=== PATIENT | female | born 1980 | race Caucasian/White ===

== ENCOUNTER 2021-09-11 10:32 | Outpatient (CLI) | payer OTHER, SELFPAY ==
[2021-09-11 11:35] LABS: SARS-CoV-2 RNA PCR Negative (Negative)
== END 2021-09-11 10:33 | disposition home or self-care (01) ==
LOC: CHSLAB 10:36
PROVIDERS: PCP Physician Assistant; Visit Provider Physician Assistant
DX: B34.9 Viral infection, unspecified (principal); Z20.822 Contact with and (suspected) exposure to COVID-19
CPT/HCPCS: C9803; U0003; U0005

== ENCOUNTER 2022-04-06 08:20 | Outpatient (CLI) | payer OTHER, SELFPAY ==
[2022-04-06 09:51] LABS: SARS-CoV-2 RNA PCR Positive (Negative)
== END 2022-04-06 08:21 | disposition home or self-care (01) ==
LOC: CHSLAB 08:23
PROVIDERS: PCP Physician Assistant; Visit Provider Physician Assistant
DX: U07.1 COVID-19 (principal)
CPT/HCPCS: C9803; U0003; U0005

== ENCOUNTER 2024-11-08 19:05 | Emergency (ER) | payer OTHER, SELFPAY ==
--- NOTE | ~2024-11-08 | XR_ITS ---
EXAM: XR shoulder RT min 2V DATE: 11/08/2024 20:33 HISTORY: injury . COMPARISON: None available. FINDINGS: Normal mineralization. No fracture or dislocation. No lytic or blastic lesion. Mild degene rative change at the AC joint. No erosion or periosteal change. Soft tissues within normal limits. IMPRESSION: No acute osseous finding in the right shoulder. Reviewed, dictated and finalized at location K. R EXPERT
--- NOTE | ~2024-11-08 | XR_ITS ---
EXAM: XR thoracic spine 3V DATE: 11/08/2024 20:33 HISTORY: right shoulder blade injury . COMPARISON: None available. FINDINGS: Vertebral body alignment intact. Vertebral body heights preserved. No disc space narrowing . The cervicothoracic junction is partially obscured in the lateral view. No traumatic malalignment o r fracture. Visualized lung parenchyma is clear. IMPRESSION: No acute fracture or traumatic malalignment detected in the thoracic spine. Reviewed, dictated and finalized at location K. CTOR OF BRAND MARKETING IMPRESSION: No acute fracture or traumatic malalignment detected in the thoraci c spine.
[2024-11-08 19:10] VITALS: BP 204/104; PULSE 99; RESP 18; TEMP 37.1; O2SAT 100
--- OUTSIDE RECORDS SUMMARY | 2024-11-08 19:12 | XMS_ITS | Referral Summary ---
Author Organization [facility] Address [address] [place] [address] Care Team Providers Care Yard Truck Driver Name Role Phone Winston Powell Primary Care Provider [phone] Allergies No known active allergies Medications ibuprofen (ADVIL,MOTRIN) suspension 100 mg/5 mL Take 400 mg by mouth every 4 (four) hours as needed for pain Active methylPREDNISol one (MEDROL, ALLA,) 4 mg DosepackIndicat ions:Anti-infla mmatory Take 1 tablet (4 mg total) by mouth as directed on package 1 packet 07/29/2019 Active Active Problems No known active problems Social History Tobacco Use Types Packs/Day Years Used Date Smoking Tobacco: Former Smokeless Tobacco: Never Comments Unknown Sex and Gender Information Value Date Recorded Sex Assigned at Not on file Legal Sex Female 3:14 AM SOFTWARE ANALYST Gender Identity Not on file Sexual Orientation Not on file Last Filed Vital Signs Vital Sign Reading Time Taken Comments Blood Pressure 152/97 07/29/2019 8:34 AM SOFTWARE ANALYST Pulse 103 07/29/2019 8:34 AM SOFTWARE ANALYST Temperature - - Respiratory Rate - - Oxygen Saturation - - Inhaled Oxygen Concentration - - Weight 95.4 kg (210 lb 6.4 oz) 07/29/2019 8:34 A M SOFTWARE ANALYST Height 162.6 cm (5' 4 ) 07/29/2019 8:34 AM SOFTWARE ANALYST Body Mass Index 36.12 07/29/2019 8:34 AM SOFTWARE ANALYST Plan of Treatment Not on file Insurance [employer] OPEN ACCESS Care Teams Yard Truck Driver Relationship Specialty Start Date End Date Winston Powell PA [address] [place] [address] PCP - General 01/17/15
--- OUTSIDE RECORDS SUMMARY | 2024-11-08 19:12 | XMS_ITS | Data Portability ---
[facility] Address [address] [place] [address] Assessment No assessment recorded. Plan of Treatment Reminders Order Date Submit Date Provider Last Modified By Organization Details Last Modified Time Details Appointments None record ed. Lab None record ed. Referral None record ed. Procedures None record ed. Surgeries None record ed. Imaging None record ed. Medication Orders None record ed. Patient TargetsNo targets recorded. Patient InstructionsNo instructions recorded. Reason for Referral None Reported. Results Created Date Observation Date Name Description Value Unit Range Abnormal Flag Note LastModifiedBy Organization Detail LastModifiedTime Result Notes None recorded. Problems Name Problem SNOMED Code Status Onset Date Resolution Date Notes Provider Name and Address Organization Details Recorded Time Carpal tunnel syndrome 72189010 Active Winston Powell PA-C Attn: Accounting ,[address] [place], [address] , [facility] 5 10:34:45 Problem Notes None recorded. Procedures Surgical History Date Name Laterality Status Provider Name and Address Organization Details Recorded Time Tubal Ligation completed Melinda French MA [facility] 11/16/2014 17:39:04 Imaging Results None recorded. Procedure Notes None recorded. Medical Equipment None Reported. Allergies No known drug allergies Medications Name Sig Start Date Stop Date Status Note LastModified by Organization Details LastModified Time Keflex 500 mg capsule Take 1 capsule every 8 hours by oral route as directed for 10 days. 10/15 completed Not Available Not Available Not Available Medrol (Sim) 4 mg tablets in a dose pack Take 1 dose pk by oral route as directed. 2023 active Not Available Not Available Not Avai lable ciprofloxac in 500 mg tablet TAKE 1 TABLET BY MOUTH EVERY 12 HOURS FOR 10 DAYS 10/15 completed Not Available Not Available Not Available acyclovir 800 mg tablet Take 1 tablet 5 times a day by oral route for 5 days. 2015 active Not Available Not Available Not Avai lable Depo-Medrol 80 mg/mL suspension for injection Take 1 mL by injection route. 10/15 completed Not Available Not Available Not Available Guaiatussin AC 10 mg-100 mg/5 mL oral liquid Take 10 mL every 4 hours by oral route as needed. 10/15 completed Not Available Not Available Not Available hydrocortis one 2.5 % topical cream APPLY A THIN LAYER TO THE AFFECTED AREA(S) BY TOPICAL ROUTE 2 TIMES PER DAY 10/15 completed Not Available Not Available Not Available Levaquin 500 mg tablet Take 1 tablet every 24 hours by oral route for 7 days. 10/15 completed Not Available Not Available Not Available naproxen 500 mg tablet Take 1 tablet twice a day by oral route. 2023 active Not Available Not Available Not Avai lable Bactrim DS 800 mg-160 mg tablet Take 1 tablet every 12 hours by oral route for 10 days. 2023 active Not Available Not Available Not Avai lable Dexilant 60 mg capsule, delayed release Take 1 capsule every day by oral route for 90 days. 2023 active Not Available Not Available Not Avai lable Vitals None Recorded Social History None recorded. Functional Status None recorded. Mental Status None recorded. Family History Relationship Description Onset Age of this Age Resolved Age Notes LastModified by Organization Details LastModified Time Father Heart disease [email or web address] Not available 2014 17:36:09 Mother Heart disease jweichert Not available 2014 17:36:09 Medical History No medical history recorded. Gynecological HistoryNo gynecological history recorded. Obstetrics History GPAL:G 0 P 0 0 0 0 Immunizations Vaccine Type Date Status Note Provider Nam e and Address Organization Details Recorded Time COVID-19, mRNA, LNP-S, PF, 30 mcg/0.3 mL dose 07/12/2021 completed Sveta Ramirez MA null, [place] - [facility] 07/12/2021 17:04:23 COVID-19, mRNA, LNP-S, PF, 30 mcg/0.3 mL dose 08/02/2021 completed Sveta Ramirez MA [facility], [place] - [facility] 08/02/2021 16:35:42 Past Encounters Encounter ID Performer Location Encounter Start Date Encounter Closed Date Diagnosis/Indication Diagnosis SNOMED-CT Code Diagnosis ICD10 Code Diagnosis Note [id number] Sveta Ramirez DENIS [facility] [address] [place] [address] 07/12/2021 17:00:19 07/12/2021 17:15:02 Administration of SARS-CoV-2 antigen vaccine 511840743 Z23 [id number] Sveta Ramirez MA [facility] [address] [place] [address] 08/02/2021 15:47:24 08/02/2021 16:54:27 Administration of SARS-CoV-2 mRNA vaccine 8056010439 Z23 Health Concerns Section Related Observation LastModified by Organization Detai ls LastModified Time None Recorded Concern Status LastModified by Organization Details LastModified Time None Recorded Advance Directives Directive None Recorded Payers Encounter Date Sequence Insurance Name Policy Number Policy Vicente Covered Member ID Vicente Member ID Guarantor Name 07/12/2021 1 [employer] - OPEN ACCESS Luann Spraggs [id number] Luann Spraggs 08/02/2021 1 [employer]EF[employer] - OPEN ACCESS Luann Spraggs [id number] Luann Spraggs OBGyn Episode No OBEpisode recorded.
--- OUTSIDE RECORDS SUMMARY | 2024-11-08 19:12 | XMS_ITS | Clinical Summary ---
Author Organization [facility] Address [address] [place] [address] Care Team Providers Care Senior Geotechnical Engineer Name Role Phone Winston Powell Primary Care Provider [phone] Allergies No known active allergies Medications ibuprofen (ADVIL,MOTRIN) suspension 100 mg/5 mL Take 400 mg by mouth every 4 (four) hours as needed for pain Active methylPREDNISol one (MEDROL, ALLA,) 4 mg DosepackIndicat ions:Anti-infla mmatory Take 1 tablet (4 mg total) by mouth as directed on package 1 packet 07/29/2019 Active Active Problems No known active problems Surgical History Surgery Date Site/Laterality Comments OTHER SURGICAL HISTORY left hand CTR HAND SURGERY Medical History Medical History Date Comments Hx Other Medical Tubal Apr 25 Family History Medical History Relation Name Comments Diabetes Other 1 Family history of Diabetes mellitus; Hypertension Other 2 Family history of Hypertension; Stroke Other 3 Family history of Stroke; Relation Name Status Comments Other 1 Other 2 Other 3 Social History Tobacco Use Types Packs/Day Years Used Date Smoking Tobacco: Former Smokeless Tobacco: Never Comments Unknown Sex and Gender Information Value Date Recorded Sex Assigned at Not on file Legal Sex Female 3:14 AM AVIATION METALSMITH Gender Identity Not on file Sexual Orientation Not on file Obstetrics History Last Filed Vital Signs Vital Sign Reading Time Taken Comments Blood Pressure 152/97 07/29/2019 8:34 AM AVIATION METALSMITH Pulse 103 07/29/2019 8:34 AM AVIATION METALSMITH Temperature - - Respiratory Rate - - Oxygen Saturation - - Inhaled Oxygen Concentration - - Weight 95.4 kg (210 lb 6.4 oz) 07/29/2019 8:34 A M AVIATION METALSMITH Height 162.6 cm (5' 4 ) 07/29/2019 8:34 AM AVIATION METALSMITH Body Mass Index 36.12 07/29/2019 8:34 AM AVIATION METALSMITH Plan of Treatment Not on file Insurance [employer] OPEN ACCESS Care Teams Senior Geotechnical Engineer Relationship Specialty Start Date End Date Winston Powell PA [address] [place] [address] PCP - General 01/17/15
--- OUTSIDE RECORDS SUMMARY | 2024-11-08 19:51 | XMS_ITS | Clinical Summary ---
Author Organization [facility] Address [address] [place] [address] Care Team Providers Care Sanforizing Machine Operator Name Role Phone Winston Powell Primary Care Provider [phone] Allergies No known active allergies Medications ibuprofen [...] on file Legal Sex Female 3:14 AM BUILDING CARPENTER HELPER Gender Identity Not on file Sexual Orientation Not on file Obstetrics History Last Filed Vital Signs Vital Sign Reading Time Taken Comments Blood Pressure 152/97 07/29/2019 8:34 AM BUILDING CARPENTER HELPER Pulse 103 07/29/2019 8:34 AM BUILDING CARPENTER HELPER Temperature - - Respiratory Rate - - Oxygen Saturation - - Inhaled Oxygen Concentration - - Weight 95.4 kg (210 lb 6.4 oz) 07/29/2019 8:34 A M BUILDING CARPENTER HELPER Height 162.6 cm (5' 4 ) 07/29/2019 8:34 AM BUILDING CARPENTER HELPER Body Mass Index 36.12 07/29/2019 8:34 AM BUILDING CARPENTER HELPER Plan of Treatment Not on file Insurance [employer] OPEN ACCESS Care Teams Sanforizing Machine Operator Relationship Specialty Start Date End Date Winston Powell PA [address] [place] [address] PCP - General 01/17/15
--- OUTSIDE RECORDS SUMMARY | 2024-11-08 19:51 | XMS_ITS | Referral Summary ---
Author Organization [facility] Address [address] [place] [address] Care Team Providers Care Senior Bioinformatics Specialist Name Role Phone Winston Powell Primary Care Provider [phone] Allergies No known active allergies Medications ibuprofen [...] on file Legal Sex Female 3:14 AM CONSTRUCTION IRONWORKER HELPER Gender Identity Not on file Sexual Orientation Not on file Last Filed Vital Signs Vital Sign Reading Time Taken Comments Blood Pressure 152/97 07/29/2019 8:34 AM CONSTRUCTION IRONWORKER HELPER Pulse 103 07/29/2019 8:34 AM CONSTRUCTION IRONWORKER HELPER Temperature - - Respiratory Rate - - Oxygen Saturation - - Inhaled Oxygen Concentration - - Weight 95.4 kg (210 lb 6.4 oz) 07/29/2019 8:34 A M CONSTRUCTION IRONWORKER HELPER Height 162.6 cm (5' 4 ) 07/29/2019 8:34 AM CONSTRUCTION IRONWORKER HELPER Body Mass Index 36.12 07/29/2019 8:34 AM CONSTRUCTION IRONWORKER HELPER Plan of Treatment Not on file Insurance [employer] OPEN ACCESS Care Teams Senior Bioinformatics Specialist Relationship Specialty Start Date End Date Winston Powell PA [address] [place] [address] PCP - General 01/17/15
--- NOTE | 2024-11-08 20:16 | ED.FALL ---
HPI - Fall General Chief Complaint: Fall Stated Complaint: fall Time Seen by Provider: 11/08/24 19:46 Source: patient Mode of arrival: ambulatory Limitations: no limitations History of Present Illness HPI Narrative: Patient is a 44-year-old female with significant past medical history that presents today after a fall. Patient slipped on the ice and fell and fell on on her right side her back. She has most pain on her right shoulder blade dorsum midline. It is very painful just palpation. She also has some pain at her right elbow has some aches and pains at other places she is from the fall. Nothing serious. complaint: fall Onset (ago): hour(s) Fall from: standing Fall witnessed: yes, by family Place fall occurred: street Loss of consciousness: none Prolonged down time: no Symptoms prior to fall: none Context: tripped/slipped Location of injury: other ( Right shoulder blade) Location of injury - extremities: Right: shoulder Severity: moderate Severity scale (1-10): 6 Quality: sharp and stabbing Associated symptoms (after fall): weakness Related Data Home Medications ?Medication ?Instructions ?Recorded ?Confirmed ?Last Taken ?Type No Home Medications 11/08/24 11/08/24 Unknown History Allergies Allergy/AdvReac Type Severity Reaction Status Date / Time acetaminophen (From Vicodin) Allergy Palpitation Verified 11/08/24 19:26 s hydrocodone (From Vicodin) Allergy Palpitation Verified 11/08/24 19:26 s Review of Systems Review of Systems: All systems reviewed & are unremarkable except as noted in HPI and below Constitutional: Constitutional: Reports as per HPI Eyes: Eyes: Reports no additional eye complaints ENT: Reports system reviewed and no additional complaints, except as documented Cardiovascular: Cardiovascular: Reports no additional cardiovascular complaints Respiratory: Respiratory: Reports no additional respiratory complaints Gastrointestinal: Gastrointestinal: Reports no additional gastrointestinal complaints Genitourinary: Genitourinary: Reports no additional female genitourinary complaints Musculoskeletal: Musculoskeletal: Reports as per HPI, Reports back pain, Reports myalgias and Reports other ( right shoulder blade pain) Integumentary/Breasts: Skin/Breast: Reports system reviewed and no additional complaints, except as docu Neurologic: Reports system reviewed and no additional complaints, except as documented Psychiatric: Psychiatric: Reports no additional psychiatric complaints Endocrine: Endocrine: Reports no additional endocrine complaints Hematologic/Lymphatic: Hematologic/Lymphatic: Reports no additional hematologic/lymphatic complaints Allergic/Immunologic: Allergic/Immunologic: Reports no additional allergic/immunologic complaints Exam Const: General: cooperative, healthy appearing and comfortable HENMT: Head: normal to inspection, No palpable skull fracture present and normocephalic Ears: hearing grossly normal bilaterally, external ears normal, TM's normal bilaterally, mastoids normal and no periauricular adenopathy Face/Nose/Sinus: Normal external nose present and Normal nares present Face and sinus: normal facial exam and sinuses nontender Teeth and gingiva: dentition normal Throat: posterior oropharynx normal Eyes: General: appearance normal, both eyes and all related structures Neck: Neck: normal visual inspection Chest: Chest palpation & inspection: normal inspection of the chest Resp: Effort & Inspection: normal respiratory effort Auscultation: clear to auscultation bilaterally Percussion: percussion normal Cardio: Jugular venous distension: no JVD Palpation: normal PMI Rate: regular rate Rhythm: regular rhythm Heart sounds: S1 normal heart sound present and S2 normal heart sound present GI: Inspection: normal to inspection Back/Spine/Pelvis: Back: no CVA tenderness Cervical Spine: cervical ROM normal Skin: General skin exam: normal color Lesions: no lesions Extrem: General: normal to inspection and full ROM Right lower extremity: normal to inspection Left lower extremity: normal to inspection Psych: Appearance: grossly normal and well kempt Course Vital Signs Vital signs: Vital Signs Temperature 98.7 F 11/08/24 19:10 Pulse Rate 99 11/08/24 19:10 Respiratory Rate 18 11/08/24 19:10 Blood Pressure 204/104 H 11/08/24 19:10 Pulse Oximetry 100 11/08/24 19:10 Oxygen Delivery Room Air 11/08/24 19:10 Temperature 98.7 F 11/08/24 19:10 Pulse Rate 99 11/08/24 19:10 Respiratory Rate 18 11/08/24 19:10 Blood Pressure 204/104 H 11/08/24 19:10 Pulse Oximetry 100 11/08/24 19:10 Oxygen Delivery Room Air 11/08/24 19:10 MDM - Fall MDM Narrative Medical decision making narrative: patient might possibly have a small fracture her right shoulder blade is in the midsection. Is very tender with her. Do an x-ray of the thoracic spine that will show the shoulder blades and put a note in for the radiologist to look at the right shoulder blade. Also do a x-ray of the right shoulder is Itself. X-rays came back negative for a fracture dislocations. She most likely is at the deep bone bruise and explained her to put heat on and take ibuprofen for the pain swelling. Differential Diagnosis Differential diagnosis: Likely other ( Bone bruise, right shoulder injury) Medical Records Attestation: I reviewed the patient's medical records. Lab Data Attestation: I reviewed the patient's lab results. Imaging Data Attestation: I personally reviewed and interpreted this imaging study as follows: Discharge Plan Discharge Clinical Impression: Crushing injury of right shoulder, Fall Patient Disposition: Home, Self-Care Condition: Stable Instructions: Shoulder Sprain (ED) Patient Language: Sierra Leonean Prescriptions: No Action No Home Medications Follow-up/Referrals: Andre,HUGO Hsu [Primary Care Provider] - Time of Disposition: 21:15
[2024-11-08] MEDS: KETOROLAC (*BKC) 60 MG/2 ML VIAL IM (20:30)
[2024-11-08 21:11] VITALS: BP 206/114; PULSE 89; RESP 18; TEMP 36.9; O2SAT 99
[2024-11-08] MEDS: cloNIDine HCL 0.2 MG TABLET PO (21:16)
--- NOTE | 2024-11-08 21:19 | PC.NURSE ---
patient medicated for her bp at this time, tearful telling RN that she is ready to go home and that she has white coat syndrome. RN explained increased risk of stroke with elevated bp. patient denies HTN symptoms. RN monitoring. daughter at bedside. patient encouraged to follow up with her pcp regarding her HTN and monitor her bp daily.
[2024-11-08 21:20] VITALS: BP 212/122; PULSE 99
[2024-11-08 21:30] VITALS: BP 207/106; PULSE 105; RESP 18; O2SAT 98
[2024-11-08 21:47] VITALS: BP 186/91
== END 2024-11-08 21:52 | disposition home or self-care (01) ==
PROVIDERS: Emergency Provider Family Medicine; PCP Physician Assistant
DX: S49.81XA Other specified injuries of right shoulder and upper arm, initial encounter (principal); W00.0XXA Fall on same level due to ice and snow, initial encounter
CPT/HCPCS: 72072; 73030; 96372; 99284; A9270; J1885